=== PATIENT | female | born 1990 | race Two or more races ===

== ENCOUNTER 2019-06-21 06:44 | Day surgery (SDC) | payer OTHER ==
[~2019-06-21] VITALS: Ht 167.6 cm; Wt 91.6 kg
[2019-06-21 07:24] VITALS: BP 123/64
[2019-06-21 13:47] VITALS: BP 117/73
== END 2019-06-21 13:25 | disposition home or self-care (01) ==
LOC: DS 06:44 → OR 09:00 → DS 13:25
DX: Z30.2 Encounter for sterilization (principal); E66.3 Overweight; Z68.32 Body mass index [BMI] 32.0-32.9, adult; Z98.891 History of uterine scar from previous surgery; Z98.890 Other specified postprocedural states
CPT/HCPCS: C1758; J0690; J1170; J2405; J2704; J2710; J3010; J3490; J7120